=== PATIENT | male | born 1995 | race Caucasian/White ===

== ENCOUNTER 2018-12-12 00:46 | Emergency (ER) | payer OTHER ==
[~2018-12-12] VITALS: Ht 180.3 cm; Wt 78.9 kg
--- NOTE | ~2018-12-12 | EKG ---
[place], [place] ELECTROCARDIOGRAM REPORT NAME: WILY DASILVA UNIT #: [id number] ROOM: DOCTOR: EPIPHANY DRAFT REPORT BIRTHDATE: [birth year] [facility] Test Date: 2018-12-12 Test Time: 01:23:34 Pat Name: WILY DASILVA Department: ER Room: 6 Gender: M Facs Teacher: Bethanie Oneill : 1995 Requested By: DELFINO GARRIDO PA-C Order Number: [id number] Reading MD: Albania Dhaliwal MD Measurements Intervals [place] Rate: 62 P: 69 CA: 166 QRS: 67 QRSD: 106 T: 37 QT: 407 QTc: 414 Interpretive Statements Sinus rhythm Probable left atrial enlargement Electronically Signed On 12-13-2018 9:35:47 PDT by Albania Dhaliwal MD CM:EKGRPT:ELECTROCARDIOGRAM REPORT [id number] DELFINO GARRIDO PA-C EPIPHANY DRAFT REPORT DELFINO GARRIDO PA-C
[~2018-12-12 00:46] MED LIST: AMOXIL500 MG PO; MOTRIN400 MG PO; NKHM; RITE AID MELATON1 MG PO
[2018-12-12] MEDS ORDERED: DILANTIN100 MG PO (00:54)
== END 2018-12-12 02:25 | disposition home or self-care (01) ==
LOC: ED 00:46
DX: F41.9 Anxiety disorder, unspecified (principal)

== ENCOUNTER 2019-04-24 09:39 | Emergency (ER) | payer BC ==
[~2019-04-24] VITALS: Ht 441.9 cm; Wt 88.5 kg
--- NOTE | ~2019-04-24 | EKG ---
[place], [place] ELECTROCARDIOGRAM REPORT NAME: WILY DASILVA UNIT #: [id number] ROOM: DOCTOR: EPIPHANY DRAFT REPORT BIRTHDATE: [birth year] [facility] Test Date: 2019-04-24 Test Time: 10:14:13 Pat Name: WILY DASILVA Department: Room: Gender: [employer]: : 1995 Requested By: EUGENIA ALFONSO DNP Order Number: [id number] Reading MD: Matty Priest MD Measurements Intervals [place] Rate: 63 P: 71 CT: 162 QRS: 66 QRSD: 108 T: 39 QT: 433 QTc: 444 Interpretive Statements Sinus rhythm Compared to ECG 12/12/2018 01:23:34 No significant changes Electronically Signed On 04-28-2019 9:49:22 PDT by Matty Priest MD CM:EKGRPT:ELECTROCARDIOGRAM REPORT [id number] EUGENIA ALFONSO DNP EPIPHANY DRAFT REPORT EUGENIA ALFONSO DNP
[~2019-04-24 09:39] MED LIST changes: +DILANTIN100 MG PO
[2019-04-24 10:25] LABS: BASO % 0.3 % (0.0-1.0); EOS # 0.1 10*3/uL (0.0-0.4); EOS % 0.4 % (1.0-4.0); HEMATOCRIT 45.7 % (42.0-52.0); LYMPH # 1.2 10*3/uL (1.3-4.4); LYMPH % 10.3 % (27.0-41.0); MEAN CELL VOLUME 85.1 fl (80.0-94.0); MEAN CORPUSCULAR HGB 29.8 pg (27.0-31.0); MEAN PLATELET VOLUME 11.3 fl (9.6-12.3); MONO # 0.8 10*3/uL (0.1-1.0); MONO % 6.7 % (3.0-9.0); NEUT # 9.5 10*3/uL (2.3-7.9); PLATELET COUNT AUTOMATED 159 10*3/uL (130-400); RED BLOOD COUNT 5.37 10*6/uL (4.50-5.90); RED CELL DISTRI WIDTH 11.9 % (0-14.5); WHITE BLOOD COUNT 11.5 10*3/uL (4.8-10.8)
[2019-04-24 10:35] LABS: ACT PARTIAL THROMBO TIME 26.6 SECONDS (20.0-32.1)
[2019-04-24 10:43] LABS: ALBUMIN 4.2 gm/dl (3.1-4.5); ALKALINE PHOSPHATASE 66 U/L (45-117); BUN 19 mg/dl (7-24); CHLORIDE 102 mmol/L (98-107); CREATININE 0.89 mg/dL (0.70-1.30); LIPASE 102 U/L (73-393); POTASSIUM 4.3 mmol/L (3.5-5.1); SGOT/AST 26 IU/L (3-35); SODIUM 138 mmol/L (136-145); TOTAL PROTEIN 7.4 gm/dL (6.4-8.2)
[2019-04-24 10:50] LABS: BILIRUBIN NEGATIVE (NEGATIVE); BLOOD NEGATIVE (NEGATIVE); CLARITY CLEAR (CLEAR); COLOR YELLOW (YELLOW); GLUCOSE NEGATIVE (NEGATIVE); KETONE NEGATIVE (NEGATIVE); LEUKO ESTERASE NEGATIVE (NEGATIVE); NITRITE NEGATIVE (NEGATIVE); PH 5.5 (5.0-9.0); SPECIFIC GRAVITY <= 1.005 (1.005-1.030); UROBILINOGEN 0.2 E.U./dl (0.2-1.0)
[2019-04-24 10:55] LABS: SGPT/ALT 40 U/L (12-78)
[2019-04-24 11:03] LABS: RBC 0-2 rbc/hpf (0-2); WBC 0-2 wbc/hpf (0-5)
[2019-04-24 11:10] LABS: TROPONIN I < 0.015 ng/ml (<0.045)
[2019-04-24] MEDS ORDERED: GOOD NEIGHBOR M25 M1 PO (11:32)
== END 2019-04-24 11:34 | disposition home or self-care (01) ==
LOC: ED 09:39
PROVIDERS: Nurse Practitioner Family
DX: R42 Dizziness and giddiness (principal); H93.13 Tinnitus, bilateral; R79.1 Abnormal coagulation profile; R11.0 Nausea; I10 Essential (primary) hypertension; G40.909 Epilepsy, unspecified, not intractable, without status epilepticus

== ENCOUNTER → 2020-01-21 | Outpatient (CLI) | payer BC ==
[~2020-01-21] MED LIST changes: +GOOD NEIGHBOR M25 M1 PO
== END | disposition home or self-care (01) ==
LOC: MRI 10:53
DX: M19.011 Primary osteoarthritis, right shoulder (principal); M77.9 Enthesopathy, unspecified; M89.8X1 Other specified disorders of bone, shoulder

== ENCOUNTER 2021-10-10 17:55 | Emergency (ER) | payer BC ==
[~2021-10-10] VITALS: Ht 180.3 cm; Wt 99.8 kg
[2021-10-10 18:47] LABS: BASO % 0.3 % (0.0-1.0); EOS # 0.2 10*3/uL (0.0-0.4); EOS % 1.7 % (1.0-4.0); HEMATOCRIT 47.2 % (42.0-52.0); LYMPH # 2.6 10*3/uL (1.3-4.4); LYMPH % 28.3 % (27.0-41.0); MEAN CORPUSCULAR HGB 29.3 pg (27.0-31.0); MEAN CORPUSCULAR HGB CONC 35.4 g/dl (33.0-37.0); MEAN PLATELET VOLUME 11.6 fl (9.6-12.3); MONO # 0.9 10*3/uL (0.1-1.0); MONO % 9.6 % (3.0-9.0); NEUT # 5.4 10*3/uL (2.3-7.9); NEUT % 59.8 % (47.0-73.0); PLATELET COUNT AUTOMATED 171 10*3/uL (130-400); RED BLOOD COUNT 5.69 10*6/uL (4.50-5.90); RED CELL DISTRI WIDTH 12.1 % (0-14.5); WHITE BLOOD COUNT 9.1 10*3/uL (4.8-10.8)
[2021-10-10 18:50] LABS: BILIRUBIN Negative (Negative); BLOOD Negative (Negative); CLARITY Clear (Clear); COLOR Yellow (Yellow); GLUCOSE Negative (Negative); KETONE Negative (Negative); LEUKO ESTERASE Negative (Negative); NITRITE Negative (Negative); SPECIFIC GRAVITY >= 1.030 (1.001-1.030)
[2021-10-10 19:01] LABS: ALKALINE PHOSPHATASE 80 U/L (45-117); BUN 24 mg/dl (7-24); CHLORIDE 106 mmol/L (98-107); CREATININE 0.87 mg/dL (0.70-1.30); POTASSIUM 3.7 mmol/L (3.5-5.1); SGOT/AST 19 IU/L (3-35); SGPT/ALT 34 U/L (12-78); SODIUM 138 mmol/L (136-145); TOTAL PROTEIN 7.6 gm/dL (6.4-8.2)
[2021-10-10 19:42] LABS: BACTERIA TRACE; RBC 0-2 rbc/hpf (0-2)
[2021-10-10] MEDS ORDERED: ZOFRAN4 MG PO (20:29)
== END 2021-10-10 20:34 | disposition home or self-care (01) ==
LOC: ED 17:55
PROVIDERS: Emergency Medicine
DX: R10.9 Unspecified abdominal pain (principal); R11.0 Nausea

== ENCOUNTER 2023-02-18 13:17 | Emergency (ER) | payer BC ==
[~2023-02-18] VITALS: Ht 180.3 cm; Wt 91.2 kg
[~2023-02-18 13:17] MED LIST changes: +ZOFRAN4 MG PO
[2023-02-18 14:31] LABS: BASO % 0.3 % (0.0-1.0); EOS # 0.1 10*3/uL (0.0-0.4); EOS % 0.7 % (1.0-4.0); HEMATOCRIT 48.7 % (42.0-52.0); LYMPH # 0.4 10*3/uL (1.3-4.4); LYMPH % 4.5 % (27.0-41.0); MEAN CELL VOLUME 85.3 fl (80.0-94.0); MEAN CORPUSCULAR HGB 29.4 pg (27.0-31.0); MEAN CORPUSCULAR HGB CONC 34.5 g/dl (33.0-37.0); MEAN PLATELET VOLUME 10.9 fl (9.6-12.3); MONO # 0.8 10*3/uL (0.1-1.0); MONO % 8.5 % (3.0-9.0); NEUT % 85.7 % (47.0-73.0); PLATELET COUNT AUTOMATED 134 10*3/uL (130-400); RED BLOOD COUNT 5.71 10*6/uL (4.50-5.90); RED CELL DISTRI WIDTH 12.3 % (0-14.5); WHITE BLOOD COUNT 9.4 10*3/uL (4.8-10.8)
[2023-02-18 15:00] LABS: ALKALINE PHOSPHATASE 69 U/L (46-116); BUN 10 mg/dl (9-23); CHLORIDE 104 mmol/L (98-107); POTASSIUM 3.8 mmol/L (3.4-5.1); SGPT/ALT 22 U/L (10-49); TOTAL PROTEIN 7.2 gm/dL (6.0-8.0)
== END 2023-02-18 16:34 | disposition home or self-care (01) ==
LOC: ED 13:17
PROVIDERS: Nurse Practitioner Family
DX: E86.0 Dehydration (principal); R11.10 Vomiting, unspecified; R19.7 Diarrhea, unspecified; R53.83 Other fatigue; I10 Essential (primary) hypertension; Z98.890 Other specified postprocedural states